=== PATIENT | female | born 1995 | race Two or more races ===

== ENCOUNTER 2025-07-26 14:20 | Outpatient (CLI) | payer OTHER | END 2025-07-26 14:21 | disposition home or self-care (01) | LOC: PRENATAL 14:20 | PROVIDERS: ATTEND Obstetrics & Gynecology Maternal & Fetal Medicine | DX: O44.02 Complete placenta previa NOS or without hemorrhage, second trimester (principal); Z3A.20 20 weeks gestation of pregnancy ==